=== PATIENT | female | born 1940 | race Caucasian/White ===

== ENCOUNTER 2025-05-09 04:06 | Emergency (ER) | payer OTHER ==
[~2025-05-09] VITALS: Ht 160 cm; Wt 68.0 kg
[2025-05-09 04:38] VITALS: TEMP 98.3
--- NOTE | 2025-05-09 04:42 | ECG ---
[facility] Test Date: 2025-05-09 Test Time: 04:40:13 Pat Name: ARMANDO MOREL Department: ED Room: Gender: F Principal Clerk Typist: JUAN ALBERTO : 1940 Requested By: EMERGENCY EMERGENCY Order Number: [id number] Reading MD: Rebel Ortega Measurements Intervals [place] Rate: 67 P: 41 MS: 166 QRS: -72 QRSD: 94 T: 59 QT: 388 QTc: 410 Interpretive Statements Sinus rhythm Left anterior fascicular block Consider anterior infarct Electronically Signed On 05-10-2025 17:47:08 PST by Rebel Ortega Please click the below link to view image of tracing.
[2025-05-09 04:46] VITALS: PULSE 71; RESP 22; O2SAT 96
--- NOTE | 2025-05-09 04:47 | ED.PDOC ---
History of Present Illness HPI Comments 84-year-old female with no significant past medical history, surgical history of hysterectomy has come to the ED via EMS due to dizziness. Patient reports that she has been dizzy for the past 2 days, the 1st day it went away on its own but yesterday night after getting out of bed she felt very dizzy and had to sit on the wheelchair usually uses. After sitting down she complains that she was unable to get up prompting her to call EMS. Patient reports the dizziness was constant, associated with decreased hearing in the right ear, and she felt like she was leaning on that side. EMS reports that she was negative for stroke-like symptoms, her vitals were stable, blood glucose level was 91 and she was in sinus rhythm. Patient denies any slurring of speech, facial drooping, weakness felt in any extremity, chest pain, shortness of breath or any other symptoms. She does report that she gets dizzy when she moves her head [id number]. On initial assessment, patient is A&O x4, in severe emotional distress and anxious, she reports this is because her is bed-bound and 4 of her dogs ran out of the house, with 1 of them is still missing. Chief Complaint: Dizziness Time Seen by MD: 04:15 Reviewed Notes: Allergies Allergies: Coded Allergies: NO KNOWN ALLERGIES (Unverified , 05/09/25) Information Source: Patient Mode of Arrival: EMS Severity: Severe Timing: Days Duration: Since onset Prehospital treatment: None Past Medical History PAST MEDICAL HISTORY: Denies Surgical History: Hysterectomy EMERGENCY MEDICINE PHYSICIAN ASSISTANT History: Denies all EMERGENCY MEDICINE PHYSICIAN ASSISTANT Hx Family History Family History: Reviewed,noncontributory to illness Social History Smoker: Non-Smoker Alcohol: Denies ETOH Use Drugs: Denies Drug Use Lives In: Home Constitutional: reports: others (Anxious, emotionally distressed); denies: chills, diaphoresis, fatigue, fever, malaise, sweats, weakness EENTM: denies: blurred vision, double vision, ear bleeding, ear discharge, ear drainage, ear pain, ear ringing, eye pain, eye redness, hearing loss, mouth pain, mouth swelling, nasal discharge, nose bleeding, nose congestion, nose pain, photophobia, tearing, throat pain, throat swelling, voice changes, others Respiratory: denies: cough, hemoptysis, orthopnea, SOB at rest, shortness of breath, SOB with excertion, stridor, wheezing, others Cardiovascular: denies: chest pain, dizzy spells, diaphoresis, Dyspnea on exertion, edema, irregular heart beat, left arm pain, lightheadedness, palpitat ions, PND, syncope, others Gastrointestinal: denies: abdomen distended, abdominal pain, blood streaked bow els, constipated, diarrhea, dysphagia, difficulty swallowing, hematemesis, melena, nausea, poor appetite, poor fluid intake, rectal bleeding, rectal pain, vomiting, others Genitourinary: denies: abnormal vagina bleeding, burning, dyspareunia, dysuria, flank pain, frequency, hematuria, incontinence, pain, , vagina discharge, urgency, others Neurological: reports: dizziness; denies: fainting, headache, left sided numbness, left sided weakness, numbness, paresthesia, pre-existing deficit, right sided numbness, right sided weakness, seizure, speech problems, tingling, tremors, weakness, others Musculoskeletal: denies: back pain, gout, joint pain, joint swelling, muscle pain, muscle stiffness, neck pain, others Allergic/Immunocompromised: denies: Difficulty Healing, Frequent Infections, Hives, Itching, others Hematologic/Lymphatic: denies: anemia, blood clots, easy bleeding, easy bruising, swollen glands, others Endocrine: denies: excessive hunger, excessive sweating, excessive thirst, excessive urination, flushing, intolerance to cold, intolerance to heat, unexplained weight gain, unexplained weight loss, others Psychiatric: reports: anxiety; denies: bipolar disorder, depression, hopeless, panic disorder, schizophrenia, sleepless, suicidal, others Physical Exam General Appearance: Severe Distress, Other (Anxious, emotionally distressed) HEENT: Other (No pallor, no icterus, maintains eye contact, emotionally distressed) Neck: Non-Tender, Normal, Normal Inspection Respiratory: Lungs Clear, No Accessory Muscle Use, No Respiratory Distress, Normal Breath Sounds Cardiovascular: JVD, No JVD, Regular Rate/Rhythm Breast Exam: Deferred Gastrointestinal: Normal Bowel Sounds, Other (No tenderness, no rebound tenderness, no masses felt) Genitalia: Deferred Pelvic: Deferred Rectal: Deferred Extremities: Leg edema, Other (Pitting edema +1 in bilateral legs up to knee) Neurologic: None, Other (Power 5/5 in all extremities, no sensory motor weakness noted) Cerebellar Function: Unable to Test Reflexes: Normal Skin: Normal Color Lymphatic: Other (No cervical adenopathy) Was a procedure done? Was a procedure done?: No Differential Dx Considerations may include: Autonomic disorder, Emotional distress, BPPV X-Ray, Labs, Meds, VS Vital Signs Date Time Temp Pulse Resp B/P (MAP) Pulse Ox O2 Delivery O2 Flow Rate FiO2 05/09/25 06:00 64 10 137/59 (85) 90 05/09/25 05:00 64 10 137/59 (85) 90 05/09/25 04:46 71 22 96 Room Air* 0 21 05/09/25 04:40 67 05/09/25 04:38 98.3 71 22 128/66 (86) 96 98.3 05/09/25 04:17 98.9 78 24 162/90 97 98.9 Lab Test 05/09/25 05:15 Range/Units White Blood Count 3.8 L 4.4-10.8 10^3/uL Red Blood Count 4.19 4.0-5.20 10^6/uL Hemoglobin 13.9 12.2-16.2 g/dL Hematocrit 41.0 36.0-46.0 % Mean Corpuscular Volume 97.8 80.0-100.0 fL Mean Corpuscular Hemoglobin 33.2 H 28.0-32.0 pg Mean Corpuscular Hemoglobin Concent 33.9 32.0-36.0 g/dL Red Cell Distribution Width 13.1 11.8-14.3 % Platelet Count 113 L 140-450 10^3/uL Mean Platelet Volume 8.2 6.9-10.8 fL Neutrophils (%) (Auto) 66.3 37.0-80.0 % Lymphocytes (%) (Auto) 22.2 10.0-50.0 % Monocytes (%) (Auto) 9.5 0.0-12.0 % Eosinophils (%) (Auto) 1.5 0.0-7.0 % Basophils (%) (Auto) 0.5 0.0-2.0 % Neutrophils # (Auto) 2.5 1.6-8.6 10 ^3/uL Lymphocytes # (Auto) 0.9 0.4-5.4 10 ^3/uL Monocytes # (Auto) 0.4 0-1.3 10 ^3/uL Eosinophils # (Auto) 0.1 0-0.8 10 ^3/uL Basophils # (Auto) 0 0-0.2 10 ^3/uL Nucleated Red Blood Cells 0.0 % Sodium Level 145 136-145 mmol/L Potassium Level 3.5 3.5-5.1 mmol/L Chloride Level 111 H 98-107 mmol/L Carbon Dioxide Level 24 20-31 mmol/L Anion Gap 10 5-15 Blood Urea Nitrogen 12 9-23 mg/dL Creatinine 0.86 0.550-1.02 mg/dL Glomerular Filtration Rate Calc 67 >90 mL/min BUN/Creatinine Ratio 14.0 10.0-20.0 Serum Glucose 93 74-106 mg/dL Calcium Level 9.2 8.7-10.4 mg/dL Total Bilirubin 0.9 0.2-1.0 mg/dL Aspartate Amino Transferase (AST) 17 13-40 U/L Alanine Aminotransferase (ALT) 14 7-40 U/L Alkaline Phosphatase 61 46-116 U/L Total Protein 6.0 5.7-8.2 g/dL Albumin 3.7 3.2-4.8 g/dL Images Reviewed?: Images reviewed and evaluated by me Time of 1ST Reevaluation: 07:10 Reevaluation 1ST: Improved Patient Education/Counseling: Diagnosis, Treatment Family Education/Counseling: No Family Present Comments Patient came in with dizziness. A CT scan of the head was done which showed No acute intracranial abnormality. EKG showed heart rate of 67 and normal sinus rhythm. CBC and BMP were unremarkable. Patient is stable and can be discharged. We have counseled her to meet her primary care physician as soon as possible for further ear workup. Patient has communicated understanding and is being discharged. SEPSIS Sepsis Screen Date sepsis recognized/suspect: May 09, 2025 Time Sepsis recognized/suspect: 424 Recent Procedure: No On Antibiotic Therapy: No Respiratory Rate >20: No Heart Rate >90: No Temp<36 C (96.8 F) or >38.3 C: No SBP <90 or MAP <65 mmHG: No New Acute Mental Status Change: No Is the patient on CPAP, BIPAP,: No Physician Orders Head Without Contrast (05/09/25 04:35) Vital Signs Date Time Temp Pulse Resp B/P (MAP) Pulse Ox O2 Delivery O2 Flow Rate FiO2 11/25/25 06:00 64 10 137/59 (85) 90 05/09/25 05:00 64 10 137/59 (85) 90 05/09/25 04:46 71 22 96 Room Air* 0 21 05/09/25 04:40 67 05/09/25 04:38 98.3 71 22 128/66 (86) 96 98.3 05/09/25 04:17 98.9 78 24 162/90 97 98.9 Laboratory Tests Test 05/09/25 05:15 White Blood Count 3.8 10^3/uL (4.4-10.8) L Departure 1 Departure Time of Disposition: 07:16 Impression: Primary Impression: Autonomic disorder Disposition: 01 HOME / SELF CARE / HOMELESS Condition: Stable Discharged With: Self Critical Care Note Critical Care Time?: No Stability Stability form required: No Heart Score Heart Score: Heart Score Response (Comments) Value History N/A 0 EKG N/A 0 Age N/A 0 Risk Factors N/A 0 Troponin N/A 0 Total 0 IDALMIS FLANAGAN RESIDENT May 09, 2025 04:47
[2025-05-09 05:43] LABS: Hematocrit 41.0 % (36.0-46.0); Hemoglobin 13.9 g/dL (12.2-16.2); Mean Corpuscular Hemoglobin 33.2 pg (28.0-32.0); Mean Corpuscular Volume 97.8 fL (80.0-100.0); Nucleated Red Blood Cells % 0.0 %
[2025-05-09 05:44] LABS: Alanine Aminotransferase 14 U/L (7-40); Albumin 3.7 g/dL (3.2-4.8); Alkaline Phosphatase 61 U/L (46-116); Anion Gap 10 (5-15); BUN/Creatinine Ratio 14.0 (10.0-20.0); Blood Urea Nitrogen 12 mg/dL (9-23); Calcium 9.2 mg/dL (8.7-10.4); Carbon Dioxide 24 mmol/L (20-31); Glucose 93 mg/dL (74-106); Sodium 145 mmol/L (136-145); Total Protein 6.0 g/dL (5.7-8.2)
[2025-05-09 05:45] LABS: Bilirubin, Total 0.9 mg/dL (0.2-1.0)
[2025-05-09 05:48] LABS: Chloride 111 mmol/L (98-107); Potassium 3.5 mmol/L (3.5-5.1)
[2025-05-09 06:00] VITALS: BP 137/59; PULSE 64; RESP 10; O2SAT 90
--- NOTE | 2025-05-09 06:58 | DVH ---
EXAM: CT HEAD WITHOUT CONTRAST INDICATION: dizziness TECHNIQUE: CT of the head without intravenous contrast. Coronal and sagittal reformatted images are submitted. Radiation Dose : 1. Head: CT Dose: CTDI volume is 53.55 mGy. Dose-length product is 1523.39 mGy*cm The dose indicators for CT are the volume Computed Tomography (CT) Dose Index (CTDIvol) and the Dose Length Product (DLP), and are measured in units of mGy and mGy-cm, respectively. These indicators are not patient dose, but values generated from the CT scanner acquisition factors. The report includes radiation exposure data for exposures received during this examination. All CT scans at this medical facility are performed using dose modulation techniques as appropriate to a performed exam including the following: Automated exposure control was utilized; adjustment of the MA and/or KV according to patient size; and use of iterative reconstruction technique. COMPARISON: None FINDINGS: There is no evidence of acute intracranial hemorrhage, extra-axial collection, mass effect, midline shift, herniation or hydrocephalus. The ventricles, sulci and cisterns are age appropriate. The mckeon-white differentiation is intact. The visualized paranasal sinuses and mastoid air cells are clear. No depressed calvarial fracture. The surrounding soft tissues are unremarkable. IMPRESSION: 1. No acute intracranial abnormality.
--- NOTE | 2025-05-10 10:50 | ECG ---
[facility] Test Date: 2025-05-08 Test Time: 21:02:19 Pat Name: ARMANDO MOREL Department: ED Room: Gender: F Photographer Finish: JUAN ALBERTO : 1940 Requested By: MISTY CAMACHO Order Number: [id number] Reading MD: Rebel Ortega Measurements Intervals [place] Rate: 66 P: 0 DE: 54 QRS: 23 QRSD: 134 T: 37 QT: 477 QTc: 500 Interpretive Statements Sinus rhythm Short DE interval Left atrial enlargement Nonspecific intraventricular conduction delay Borderline T abnormalities, anterior leads Electronically Signed On 05-10-2025 17:46:38 PST by Rebel Ortega Please click the below link to view image of tracing.
== END 2025-05-09 07:38 | disposition home or self-care (01) ==
LOC: ER 04:06 → EDBD 04:06 → ER 07:38
DX: G90.9 Disorder of the autonomic nervous system, unspecified (principal); H91.91 Unspecified hearing loss, right ear; Z90.710 Acquired absence of both cervix and uterus
CPT/HCPCS: 36415; 70450; 80053; 85025; 93005